=== PATIENT | female | born 1950 | race Caucasian/White ===

== ENCOUNTER → 2023-12-04 11:26 | Outpatient (REF) | payer MEDICARE, OTHER, SELFPAY ==
[2023-12-04 12:01] LABS: Hematocrit 44.3 % (37.0-47.0); Hemoglobin 14.8 g/dL (12.0-16.0); Mean Corp Hgb Conc. 33.4 g/dL (33.0-37.0); Mean Corpuscular Volume 95.9 fL (81.0-99.0); Mean Platelet Volume 12.3 fL (7.4-10.4); Platelet Count 142 10^3/uL (130-400); Red Blood Cell Count 4.62 10^6/uL (4.20-5.40); Red Cell Dist. Width 13.3 % (11.5-14.5); White Blood Cell Count 8.1 10^3/uL (4.8-10.8)
[2023-12-04 12:28] LABS: HDL Cholesterol 63 mg/dl; LDL Cholesterol, Calculated 62 mg/dl; Total Cholesterol 142 mg/dl (50-199); Triglyceride 85 mg/dl (10-149); Very Low Density Lipoprotein 17 mg/dl (0-30)
[2023-12-04 12:54] LABS: TSH Reflex To Free T4 1.15 uIU/ml (0.47-4.68)
== END ==
LOC: REG 11:26
PROVIDERS: ATTENDING PHYSICIAN Internal Medicine Cardiovascular Disease; FAMILY PHYSICIAN Family Medicine
DX: E78.2 Mixed hyperlipidemia (principal)
CPT/HCPCS: 36415; 80061; 84443; 85027

== ENCOUNTER → 2024-11-05 10:43 | Outpatient (REF) | payer OTHER, SELFPAY ==
[2024-11-05 14:54] LABS: Blood Urea Nitrogen 14 mg/dl (7-17); Calcium 8.8 mg/dl (8.4-10.2); Carbon Dioxide 28 mmol/L (22-30); Chloride 101 mmol/L (98-107); Glucose 91 mg/dl (70-99); HDL Cholesterol 64 mg/dl; LDL Cholesterol, Calculated 73 mg/dl; Potassium 3.9 mmol/L (3.5-5.1); Sodium 139 mmol/L (135-145); Total Cholesterol 155 mg/dl (50-199); Triglyceride 94 mg/dl (10-149); Very Low Density Lipoprotein 18 mg/dl (0-30)
[2024-11-05 15:26] LABS: eGFR > 60.00
== END ==
LOC: RCS 10:43
PROVIDERS: ATTENDING PHYSICIAN Internal Medicine Cardiovascular Disease; FAMILY PHYSICIAN Family Medicine
DX: I47.20 Ventricular tachycardia, unspecified (principal); E78.2 Mixed hyperlipidemia
CPT/HCPCS: 36415; 80048; 80061; 93306